=== PATIENT | male | born 1970 | race American Indian/Alaskan Native ===

== ENCOUNTER 2017-10-15 17:43 | Emergency (ER) | payer OTHER ==
[~2017-10-15] VITALS: Ht 185.4 cm; Wt 147.9 kg
[~2017-10-15 17:43] MED LIST: CHEWABLE-VITE1 EAC1 PO; DIALYVITE V5000 UNIT PO; LISINOPRIL5 MG PO; PRILOSEC20 MG PO; ZYRTEC10 MG PO
== END 2017-10-15 18:00 | disposition home or self-care (01) ==
LOC: ED 17:43
DX: R22.1 Localized swelling, mass and lump, neck (principal)

== ENCOUNTER → 2018-08-14 | Emergency (ER) | payer OTHER ==
[~2018-08-14] VITALS: Ht 185.4 cm; Wt 147.9 kg
[~2018-08-14] MED LIST changes: +BACTRIM DS TAB1 EACH PO
== END ==
LOC: ED 18:23
PROC: 0H94XZZ Drainage of Neck Skin, External Approach (ICD-10-PCS; principal; 2018-08-14)
DX: L02.11 Cutaneous abscess of neck (principal); F17.200 Nicotine dependence, unspecified, uncomplicated; Z90.49 Acquired absence of other specified parts of digestive tract
CPT/HCPCS: 10060; 87070; 87205; 99283-25